=== PATIENT | male | born 1990 | race Caucasian/White ===

== ENCOUNTER 2024-09-23 09:26 | Emergency (ER) | payer BC, SELFPAY ==
--- NOTE | 2024-09-23 09:29 | XRR_ITS ---
PROCEDURE INFORMATION: Exam: XR Chest Exam date and time: 09/23/2024 9:53 AM Age: 33 years old Clinical indication: Pain; Angina pectoris; Additional info: Chest pain TECHNIQUE: Imaging protocol: Radiologic exam of the chest. Views: 1 view. COMPARISON: No relevant prior studies available. FINDINGS: Lungs: Unremarkable. No consolidation. Pleural spaces: Unremarkable. No pleural effusion. No pneumothorax. Heart/Mediastinum: Unremarkable. No cardiomegaly. Bones/joints: Unremarkable. XR/XR chest 1V portable [id number] IMPRESSION: No acute findings.
--- NOTE | 2024-09-23 09:29 | ECG_ITS ---
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 Measurements Intervals [place] Rate: 66 P: 48 IA: 147 QRS: 68 QRSD: 98 T: 23 QT: 369 QTc: 389 Interpretive Statements SINUS RHYTHM WITH SINUS ARRHYTHMIA No previous ECG available for comparison Electronically Signed On 09-24-2024 00:01:59 CDT by Gianni Rodriguez M.D. [id number]
[2024-09-23 09:37] VITALS: BP 122/67; PULSE 62; RESP 16; TEMP 36.7; O2SAT 99; BMI 23.5
--- NOTE | 2024-09-23 10:55 | ED_ITS ---
HPI - Chest Pain 2 General: Chief Complaint: Chest Pain Stated Complaint: chest pain, fatigue, dizzy Time Seen by Provider: 09/23/24 09:30 Source: patient and family Mode of arrival: ambulatory Limitations: no limitations History of Present Illness: Patient is a 33-year-old male who presents to the ED today along with his significant other for evaluation of episodes of chest pains over the past 3 months. Patient states approximately 3 months ago, while in the shower, he had a squeezing sensation to the left side of his chest that brought him to his knees . He states since then he has had a constant pressure in the left side of his chest. He states he continues to get episodes of a squeezing and burning in his chest. He does sometimes complain of lightheadedness and palpitations. Symptoms do not seem to be exertional as he states they will often happen at rest as well. He has noticed some shortness of breath with exertion however. Denies family history of cardiac disease. MD complaint: chest pain Onset (ago): month(s) Timing of current episode: episodic Prior episodes: Yes Onset: during rest and during exertion Pain location: left chest Pain radiation: none Severity: moderate Quality: other (squeezing) Relieving factors: nothing Exacerbating factors: nothing Associated symptoms: Reports palpitations; Deny abdominal pain, fever(s), nausea or vomiting Treatment prior to arrival: none Risk Factors: Coronary artery disease risk factors: none Thoracic aortic dissection risk factors: none Related Data Home Medications Medication Instructions Recorded Confirmed No Known Home Medications 09/23/24 09/23/24 Allergies Allergy/AdvReac Type Severity Reaction Status Date / Time No Known Allergies Allergy Verified 09/23/24 09:41 Review of Systems 2 Const: Denies: fever(s), chills, body aches, fatigue or malaise Card: Reports: chest pain, palpitations, irregular heart rhythm and dyspnea on exertion; Denies: edema, swelling of feet/ankles, orthopnea, leg pain with exertion or acrocyanosis Resp: Denies: productive cough, non-productive cough, wheezing, hemoptysis or chest congestion GI: Denies: abdominal pain, nausea, vomiting or diarrhea Musc: Denies: neck pain, back pain, extremity pain, extremity swelling, joint pain or joint swelling Skin/Breast: Denies: rash Neuro: Denies: headache(s), numbness in extremities, weakness in extremities, sensory changes, difficulty walking or dizziness Physical Exam 2 Const: COMMON NORMALS: no acute distress, average body habitus, patient oriented x3, no limitations, healthy appearing, alert and well nourished HENMT: COMMON NORMALS: normocephalic and atraumatic HEAD & SCALP: n ormocephalic and atraumatic Neck/C-Spine: COMMON NORMALS: full ROM, no lymphadenopathy, supple, no meningeal signs and no JVD Chest: COMMONS NORMALS: normal inspection of the chest and normal palpation of entire chest wall Resp: COMMON NORMALS: normal respiratory effort and clear to auscultation bilaterally AUSCULTATION: clear to auscultation bilaterally Cardio: COMMON NORMALS: no JVD, regular rate and regular rhythm RATE: r egular rate RHYTHM: regular rhythm GI: COMMON NORMALS: Normal to inspection, nondistended, normoactive bowel sounds present, Soft to palpation, non-tender, No hepatosplenomegaly present and no masses PALPATION: Yes Soft to palpation and Yes No hepatosplenomegaly present : COMMON NORMALS: Yes no CVA tenderness BLADDER/KIDNEY EXAM: Yes no CVA tenderness Back/Pelvis: COMMON NORMALS: no CVA tenderness and thoracic and lumbar spine normal to inspection Extremity: COMMON NORMALS: normal to inspection, capillary refill normal, no clubbing, cyanosis or edema, no calf tenderness and no pedal edema Neuro: COMMON NORMALS: patient oriented x3, moves all extremities, no focal motor deficits and no sensory deficits noted SENSORIUM/ORIENTATION: Yes alert MENINGEAL SIGNS: Yes no meningeal signs Skin: COMMON NORMALS: no rashes or lesions noted GENERAL SKIN EXAM: no rashes or lesions noted Course 2 Vital Signs: Vital signs: Vital Signs Temperature 98.1 F 09/23/24 09:37 Pulse Rate 65 09/23/24 11:16 Respiratory Rate 16 09/23/24 09:37 Blood Pressure 119/70 09/23/24 11:16 Pulse Oximetry 98 09/23/24 11:16 Oxygen Delivery Me thod Room Air 09/23/24 11:16 MDM - Chest Pain Medical Decision Making Patient appears in no acute distress. His vital signs are stable. Blood work including a baseline troponin and D-dimer are unremarkable. His CXR showing no acute findings. His EKG showing sinus bradycardia with sinus arrhythmia. This most likely is physiologic bradycardia as he is a healthy-appearing 33-year-old male. Medical Records I reviewed the patient's medical records. Lab Data I reviewed the patient's lab results. 09/23/24 10:55 09/23/24 10:55 Radiology Impressions Chest X-Ray 09/23/24 09:29 IMPRESSION: No acute findings. Laboratory Results WBC 9.28 10^3/uL (3.29-11.43) 09/23/24 10:55 RBC 4.90 10^6/uL (3.85-5.65) 09/23/24 10:55 Hgb 15.20 g/dL (11.27-16.99) 09/23/24 10:55 Hct 45.1 % (37-53) 09/23/24 10:55 MCV 92.0 fl (82-101) 09/23/24 10:55 MCH 31.0 pg (27-33) 09/23/24 10:55 MCHC 33.7 g/dL (30-55) 09/23/24 10:55 RDW 11.8 % (12.1-15.1) L 09/23/24 10:55 Plt Count 247 10^3/cmm (157-399) 09/23/24 10:55 MPV 10.9 fL (7.4-10.4) H 09/23/24 10:55 Neut % (Auto) 70.6 % 09/23/24 10:55 Lymph % (Auto) 22.0 % 09/23/24 10:55 Crosby % (Auto) 6.6 % 09/23/24 10:55 Eos % (Auto) 0.1 % 09/23/24 10:55 Baso % (Auto) 0.4 % 09/23/24 10:55 Neut # (Auto) 6.55 10^3/uL (1.8-7.7) 09/23/24 10:55 Lymph # (Auto) 2.0 10^3/uL (0.8-4.8) 09/23/24 10:55 Crosby # (Auto) 0.6 10^3/uL (0.2-0.9) 09/23/24 10:55 Eos # (Auto) 0.0 10^3/uL (0.0-0.8) 09/23/24 10:55 Baso # (Auto) 0.0 10^3/uL (0.0-0.1) 09/23/24 10:55 Nucleated RBC % (auto) 0 % 09/23/24 10:55 Nucleated RBCs # 0.0 /100WBC 09/23/24 10:55 D-Dimer <= 0.27 ug/mLFEU (0-0.59) 09/23/24 10:55 Sodium 137 mmol/L (136-145) 09/23/24 10:55 Potassium 4.7 mmol/L (3.5-5.1) 09/23/24 10:55 Chloride 102 mmol/L (98-107) 09/23/24 10:55 Carbon Dioxide 28 mmol/L (22-29) 09/23/24 10:55 Anion Gap 11.7 (5-19) 09/23/24 10:55 BUN 11 mg/dL (6-20) 09/23/24 10:55 Creatinine 0.8 mg/dL (0.7-1.2) 09/23/24 10:55 GFR Calculation 110.0 mL/min (90-130) 09/23/24 10:55 Glucose 94 mg/dL (65-115) 09/23/24 10:55 Calculated Osmolality 283 mOsm/kg (285-295) L 09/23/24 10:55 Calcium 8.8 mg/dL (8.5-10.5) 09/23/24 10:55 Total Bilirubin 0.2 mg/dL (0.15-1.2) 09/23/24 10:55 AST 18 U/L (0-40) 09/23/24 10:55 ALT 12 U/L (0-41) 09/23/24 10:55 Alkaline Phosphatase 76 U/L (40-130) 09/23/24 10:55 Troponin T Baseline < 6 ng/L (0-15) 09/23/24 10:55 Total Protein 6.3 g/dL (6.6-8.7) L 09/23/24 10:55 Albumin 4.5 g/dL (3.5-5.2) 09/23/24 10:55 Globulin 1.8 g/dL (1.3-4.6) 09/23/24 10:55 All radiology interpretation(s) finalized by discharge Discharge Plan Discharge Patient Disposition: Home Clinical Impression: Atypical chest pain Condition: Stable Prescriptions: No Action No Known Home Medications Discharge Orders: Discharge ED (Routine); Ordered 09/23/24 Ordered By: Sherrie Casey Referrals: Xavi Harris FNP [Primary Care Provider] - Activity Restrictions/Additional Instructions: As we discussed, we have case management reach out to you to set you up with primary care provider for further evaluation of your symptoms. You may return to the emergency department for worsening pain, shortness of breath, passing out episodes, racing heart rate, worsening palpitations, or any other concerns you may have. 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
[2024-09-23 11:09] LABS: Basophils % 0.4 %; Eosinophils % 0.1 %; Hematocrit 45.1 % (37-53); Mean Corpuscular HGB Conc 33.7 g/dL (30-55); Mean Platelet Volume 10.9 fL (7.4-10.4); Monocytes # 0.6 10^3/uL (0.2-0.9); Monocytes % 6.6 %; Neutrophils # 6.55 10^3/uL (1.8-7.7); Neutrophils % 70.6 %; Nucleated Red Blood Cells % 0 %; Platelet Count 247 10^3/cmm (157-399); Red Cell Distribution Width 11.8 % (12.1-15.1); White Blood Count 9.28 10^3/uL (3.29-11.43)
[2024-09-23 11:16] VITALS: BP 119/70; PULSE 65; O2SAT 98
--- NOTE | 2024-09-23 11:20 | ECG_ITS ---
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 Measurements Intervals [place] Rate: 51 P: 34 TX: 162 QRS: 75 QRSD: 90 T: 44 QT: 404 QTc: 373 Interpretive Statements SINUS BRADYCARDIA WITH SINUS ARRHYTHMIA EARLY REPOLARIZATION [ST ELEVATION WITH NORMALLY INFLECTED T-WAVE] Compared to ECG 09/23/2024 09:27:35 Early repolarization now present Sinus rhythm no longer present Electronically Signed On 09-24-2024 00:54:49 CDT by Gianni Rodriguez M.D. [id number]
[2024-09-23 11:30] LABS: D Dimer <= 0.27 ug/mLFEU (0-0.59)
[2024-09-23 11:32] LABS: Alanine Aminotransferase 12 U/L (0-41); Albumin Level 4.5 g/dL (3.5-5.2); Alkaline Phosphatase 76 U/L (40-130); Anion Gap 11.7 (5-19); Aspartate Amino Transferase 18 U/L (0-40); Blood Urea Nitrogen 11 mg/dL (6-20); Calcium 8.8 mg/dL (8.5-10.5); Carbon Dioxide 28 mmol/L (22-29); Chloride 102 mmol/L (98-107); Creatinine Clr Calc Pharmacy 121.9086; Globulin 1.8 g/dL (1.3-4.6); Glucose 94 mg/dL (65-115); Osmolality Calculated 283 mOsm/kg (285-295); Potassium 4.7 mmol/L (3.5-5.1); Sodium 137 mmol/L (136-145); Total Bilirubin 0.2 mg/dL (0.15-1.2); Total Protein 6.3 g/dL (6.6-8.7)
[2024-09-23 11:39] LABS: Troponin(5th) Baseline < 6 ng/L (0-15)
[2024-09-23 12:08] VITALS: BP 96/59; PULSE 75; O2SAT 97
--- NOTE | 2024-09-24 08:48 | DCPLANNER ---
Message sent to Clinics to establish PCP.
== END 2024-09-23 12:09 | disposition home or self-care (01) ==
PROVIDERS: Emergency Provider Physician Assistant; Family Provider Nurse Practitioner Family; PCP Nurse Practitioner Family
DX: R07.89 Other chest pain (principal)
CPT/HCPCS: 36415; 71045; 80053; 84484; 85025; 85378; 93005; 99285

== ENCOUNTER → 2024-11-14 12:34 | Outpatient (BNVA) | payer BC, SELFPAY | PROVIDERS: Family Provider Nurse Practitioner Family; PCP Nurse Practitioner Family; Visit Provider Internal Medicine | DX: R07.9 Chest pain, unspecified (principal) | CPT/HCPCS: 93005 ==

== ENCOUNTER 2024-12-27 11:31 | Outpatient (CLI) | payer BC, MEDICAID, SELFPAY ==
--- NOTE | 2024-12-27 | ECG_ITS ---
[facility] Test Date: 2024-12-27 Pat Name: Erick Smith Jr Department: Room: Gender: Male Patient Support Specialist: : 1990 Requested By: Geoff Kenyon Order Number: [id number] Darwin MD: Geoff Kenyon M.D. Interpretive Statements EXERCISE STRESS TEST EXERCISE DATA: The patient was exercised by Tim protocol. Baseline heart rate was 76 beats per minute. Baseline blood pressure was 111/69 millimeters of mercury. Maximal predicted heart rate was 184 beats per minute. Maximum heart rate achieved was 165, which was 89% of the maximum predicted heart rate. Maximum blood pressure was 180/50 millimeters of mercury. Total exercise time was 10 minutes 54 seconds. Maximum METs achieved was 13.5. The reason for ending the test was completion of protocol. The patient complained of shortness of breath during the stress test, which then resolved at the end of the test. ELECTROCARDIOGRAM: BASELINE: Showed sinus rhythm, normal axis, no significant ST-T changes at the baseline noted. [] EXERCISE: At the peak exercise level, [] No significant ST-T changes suggestive of ischemia noted. [] RECOVERY: During the recovery period, heart rate dropped appropriately. No significant ST-T changes in the recovery suggestive of ischemia noted. [] CONCLUSION: 1. Exercise capacity is excellent. 2. Heart rate response was appropriate 3. Blood pressure response was appropriate 4. Symptoms not suggestive of ischemia. 5. Stress test is negative for ischemia. Electronically Signed On 12-29-2024 10:11:13 SALES PROGRAM COORDINATOR by Geoff Kenyon M.D. [id number]
[2024-12-27 11:41] VITALS: BMI 25.0
[2024-12-27 12:19] VITALS: BP 146/64; PULSE 72
== END 2024-12-27 11:32 | disposition home or self-care (01) ==
LOC: CDL 11:32
PROVIDERS: PCP Nurse Practitioner Family; Visit Provider Internal Medicine
DX: R07.9 Chest pain, unspecified (principal); R06.02 Shortness of breath
CPT/HCPCS: 93017